=== PATIENT | female | born 1980 | race Hispanic/Latino ===

== ENCOUNTER 2021-07-22 18:49 | Emergency (ER) | payer BC ==
[~2021-07-22] VITALS: Ht 172.7 cm; Wt 108.9 kg
[2021-07-22 18:52] VITALS: BP 118/73
[2021-07-22 21:13] VITALS: BP 107/64
== END 2021-07-22 21:18 | disposition home or self-care (01) ==
LOC: EDH 18:49
DX: H33.22 Serous retinal detachment, left eye (principal); I10 Essential (primary) hypertension; E11.9 Type 2 diabetes mellitus without complications; Z20.822 Contact with and (suspected) exposure to COVID-19; Z98.890 Other specified postprocedural states
CPT/HCPCS: 87635; 99283; C9803